=== PATIENT | female | born 1960 | race Caucasian/White ===

== ENCOUNTER 2021-01-19 23:09 | Emergency (ER) | payer MEDICARE ==
[~2021-01-19] VITALS: Ht 167.6 cm; Wt 91.0 kg
[~2021-01-19 23:09] MED LIST: DIVA250T PO; DULO60CA7 PO; FAMO-63 PO; OMEP20CA16 PO; ZOLP10TA PO
[2021-01-19] MEDS ORDERED: CEPH500T PO (23:31)
--- NOTE | 2021-01-19 23:31 | PHYS DOC ---
Past History Past Medical History: Anxiety, Bipolar, Hypertension (GUILLERMO MALDONADO APRN) Past Surgical History: Hysterectomy (GUILLERMO MALDONADO APRN) Smoking: Less than 1pk/day Alcohol Use: None Drug Use: None (GUILLERMO MALDONADO APRN) General Adult HPI: HPI: Patient is a 60-year-old female who presents to the emergency department for a laceration to her lateral right ankle. Patient reports that 4 days ago she was walking her dog and she tripped and fell onto a piece of glass. Patient rates her pain 9 out of 10. She denies any decreased range of motion, decreased sensation, inability to bear weight or ambulate, fevers. She states that she has been taking naproxen at home for her pain. Patient is not a diabetic. (GUILLERMO MALDONADO APRN) Review of Systems: Review of Systems: Constitutional: See HPI Musculoskeletal: See HPI Integument: See HPI Neurologic: See HPI Psychiatric: History of depression and anxiety (GUILLERMO MALDONADO APRN) Allergies: Allergies: Allergies Coded Allergies Type Severity Reaction Last Updated Verified No Known Drug Allergies 12/04/13 No (GUILLERMO MALDONADO APRN) Physical Exam: PE: Constitutional: Well developed, well nourished, no acute distress, non-toxic appearance. [] HENT: Normocephalic, atraumatic Eyes: PERRL, EOMI, conjunctiva normal, no discharge. [] Neck: Normal range of motion, no stridor Cardiovascular: Normal peripheral perfusion Lungs & Thorax: Normal work of breathing, no tachypnea Abdomen: Soft Skin: Warm, dry, no rash, 1 cm circular area of redness noted to patient's right lateral ankle without any streaking up the leg Back: Normal range of motion Extremities: No tenderness, no cyanosis, no clubbing, ROM intact, no edema. Right ankle: Range of motion intact, no obvious deformity, no swelling, neuro intact, centimeter area of redness surrounding the lesion noted to the lateral aspect of patient's right ankle Neurologic: Alert and oriented X 3, normal motor function, normal sensory function, no focal deficits noted. [] Psychologic: Affect normal, judgement normal, mood normal. [] (GUILLERMO MALDONADO APRN) EKG: EKG: [] (GUILLERMO MALDONADO APRN) Radiology/Procedures: Radiology/Procedures: []PROCEDURE: ANKLE RIGHT 3V XR EXAM OF ANKLE_RIGHT 3VIEWS History: Reason: laceration r. lateral side of ankle with glass, pain / Spl. Instructions: / History: Technique: 3 views right ankle Comparison: None. Findings: Ankle soft tissue swelling PROMINENT laterally. No dislocation. No acute fracture. Plantar calcaneal spur. Mild midfoot DJD. Impression: 1. No acute osseous abnormality. 2. Ankle soft tissue swelling. Electronically signed by: Yehuda Castorena DO (01/19/2021 11:59 PM) [facility] DICTATED AND SIGNED BY: YEHUDA CASTORENA DO DATE: 01/19/21 093 CC: YEIMY JONES MD; JOSELUIS RIGGS MD; GUILLERMO MALDONADO APRN ~MTH0 0 (GUILLERMO MALDONADO APRN) Heart Score: C/O Chest Pain: N/A Risk Factors: Risk Factors: DM, Current or recent (<one month) smoker, HTN, HLP, family history of CAD, obesity. Risk Scores: Score 0 - 3: 2.5% MACE over next 6 weeks - Discharge Home Score 4 - 6: 20.3% MACE over next 6 weeks - Admit for Clinical Observation Score 7 - 10: 72.7% MACE over next 6 weeks - Early Invasive Strategies (GUILLERMO MALDONADO APRN) Course & Med Decision Making: Course & Med Decision Making Pertinent Labs and Imaging studies reviewed. (See chart for details) [] Patient is a 60-year-old female being seen in the ER for a laceration to her right ankle. Laceration appears to be well approximated however there is a 1 cm area of redness surrounding site without any streaking up the leg. An x-ray was performed to rule out foreign body as patient said she cut her ankle on a piece of glass. The x-ray was negative for any acute findings and foreign bodies as read by this AEROPHYSICS ENGINEER and physician. Patient was treated with pain medication in the ER. She will be started on antibiotic and was given first dose in the ER. I discussed with patient all findings and diagnostic testing as well as the need to follow-up with PCP for further evaluation and treatment or return to the ER if any new or worsening symptoms. Strict return precautions were also discussed at length. Patient voiced understanding and agreement with the plan. Patient is hemodynamically stable at the time of disposition. (GUILLERMO MALDONADO APRN) Dragon Disclaimer: Dragon Disclaimer: This electronic medical record was generated, in whole or in part, using a voice recognition dictation system. (GUILLERMO MALDONADO APRN) Departure Departure: Impression: Primary Impression: Laceration of ankle Qualified Codes: S91.011A - Laceration without foreign body, right ankle, initial encounter Disposition: HOME / SELF CARE / HOMELESS Condition: GOOD Referrals: YEIMY JONES MD (PCP) Patient Instructions: Laceration Care, Adult Additional Instructions: You were seen in the emergency department for a laceration to your right ankle. The laceration appears to be well approximated there is some surrounding redness and is to be treated with an antibiotic. You were given your first dose in the ER. Ensure that you start and finish the antibiotic completely. He can take Tylenol or ibuprofen for pain at home. Continue to change her dressings as needed. Monitor for worsening of your infection such as redness, warmth, swelling or drainage. Follow-up with your primary care provider tomorrow regarding your ER visit. If you develop any of the signs of infection, inability to bear weight or ambulate, decreased range of motion or increased swelling to your ankle, high fevers refractory to treatment, intractable nausea or vomiting please return to the emergency department. EMERGENCY DEPARTMENT GENERAL DISCHARGE INSTRUCTIONS Thank you for coming to [facility] ([facility]) today and trusting us with you care. We trust that you had a positivie experience in our Emergency Department. If you wish to speak to the department management, you may call the director at [phone]. YOUR FOLLOW UP INSTRUCTIONS ARE FOLLOWS: 1. Do you have a private Doctor? If you do not have a private doctor, please ask for a resource list of physicians or clinics that may be able to assist you with follow up care. 2. The Emergency Physician has interpreted your x-rays. The X-Ray specialist will also review them. If there is a change in the findings, you will be notified in 48 hours when at all possible. 3. A lab test or culture has been done, your results will be reviewed and you will be notified if you need a change in treatment. ADDITIONAL INSTRUCTIONS AND INFORMATION: 1. Your care today has been supervised by a physician who is specially trained in emergency care. Many problems require more than one evaluation for a complete diagnosis and treatment. We recommend that you schedule your follow up appointment as recommended to ensure complete treatment of you illness or injury. If you are unable to obtain follow up care and continue to have a problem, or if your condition worsens, we recommend that you return to the ED. 2. We are not able to safely determine your condition over the phone nor are we able to give sound medical advice over the phone. For these safety reasons, if you call for medical advice we will ask you to come to the ED for further evaluation. 3. If you have any questions regarding these discharge instructions please call the ED at [phone]. SAFETY INFORMATION: In the interest of safety, wellness, and injury prevention; we encourage you to wear your sealbelt, if you smoke; quite smoking, and we encourage family to use a protective helmet for bicycling and other sporting events that present an increased risk for head injury. IF YOUR SYMPTOMS WORSEN OR NEW SYMPTOMS DEVELOP, OR YOU HAVE CONCERNS ABOUT YOUR CONDITION; OR IF YOUR CONDITION WORSENS WHILE YOU ARE WAITING FOR YOUR FOLLOW UP APPOINTMENT; EITHER CONTACT YOUR PRIMARY CARE DOCTOR, THE PHYSICIAN WHOSE NAME AND NUMBER YOU WERE GIVEN, OR RETURN TO THE ED IMMEDIATELY. Scripts Hydrocodone Bit/Acetaminophen (HYDROCODONE-APAP 5-325 ) 1 Each Tablet 1 TAB PO PRN Q6HRS PRN for PAIN for 1 Day, #4 TAB 0 Refills Prov: GUILLERMO MALDONADO APRN 01/20/21 Cephalexin (CEPHALEXIN) 500 Mg Tablet 1 TAB PO QID for infection for 7 Days, #28 TAB 0 Refills Prov: GUILLERMO MALDONADO APRN 01/19/21 Attending Signature Attending Signature I have participated in the care of this patient and I have reviewed and agree with all pertinent clinical information above including history, exam, and recommendations. (JOSELUIS RIGGS MD) GUILLERMO MALDONADO APRN Jan 19, 2021 23:31 JOSELUIS RIGGS MD Jan 20, 2021 00:38
[2021-01-19] MEDS ORDERED: CEPHALEXIN 250 MG CAPSULE PO ONE (23:45)
[2021-01-19] MEDS ORDERED: HYDROcodone/APAP 5/325MG 1 TAB TABLET PO ONE (23:45)
[2021-01-20] MEDS ORDERED: DIPH,PERTUSS(ACELL),TET VAC/PF 0.5 ML SYRINGE. VAX IM ONE
[2021-01-20] MEDS ORDERED: HYDR-2155 PO
--- NOTE | 2021-01-20 00:01 | RAD ---
XR EXAM OF ANKLE_RIGHT 3VIEWS History: Reason: laceration r. lateral side of ankle with glass, pain / Spl. Instructions: / History : Technique: 3 views right ankle Comparison: None. Findings: Ankle soft tissue swelling PROMINENT laterally. No dislocation. No acute fracture. Plantar calcaneal spur. Mild midfoot DJD. Impression: 1. No acute osseous abnormality. 2. Ankle soft tissue swelling. Electronically signed by: Yehuda Castorena DO (01/19/2021 11:59 PM) [facility]
[2021-01-20 00:15] VITALS: BP 144/94
== END 2021-01-20 00:15 | disposition home or self-care (01) ==
LOC: ER 23:09
DX: S91.011A Laceration without foreign body, right ankle, initial encounter (principal); F41.9 Anxiety disorder, unspecified; F31.9 Bipolar disorder, unspecified; I10 Essential (primary) hypertension; F17.200 Nicotine dependence, unspecified, uncomplicated; W01.0XXA Fall on same level from slipping, tripping and stumbling without subsequent striking against object, initial encounter; Y93.K1 Activity, walking an animal; Y92.89 Other specified places as the place of occurrence of the external cause; Y99.8 Other external cause status
CPT/HCPCS: 73610; 99283